=== PATIENT | female | born 1990 | race Two or more races ===

== ENCOUNTER 2018-02-08 12:00 | Inpatient (IN) | payer MEDICAID ==
[~2018-02-08] VITALS: Ht 160 cm; Wt 73.0 kg
[2018-02-08] MEDS ORDERED: PNV1TABL76 PO (13:19)
[2018-02-08] MEDS ORDERED: DEXT 5%/LR + PITOCIN 20UNITS/L 1,000 ML IV SCH (13:21)
[2018-02-08] MEDS ORDERED: BUTORPHANOL TARTRATE 2 MG/ML VIAL IV PRN (13:30)
[2018-02-08] MEDS ORDERED: CARBOPROST TROMETHAMINE 250 MCG/ML AMPUL IM PRN (13:30)
[2018-02-08] MEDS ORDERED: MISOPROSTOL 100MCG TABLET VG PRN (13:30)
[2018-02-08] MEDS ORDERED: LIDOCAINE HCL 1% 20ML VIAL (Pyxis) INJ INFIL PRN (13:30)
[2018-02-08] MEDS ORDERED: NALOXONE HCL 0.4 MG/ML 1ML VIAL IM PRN (13:30)
[2018-02-08] MEDS ORDERED: METHYLERGONOVINE MALEATE 0.2 MG/ML IM PRN (13:30)
[2018-02-08 13:47] LABS: BASOPHILS % 0.2 % (0.0-2.0); EOSINOPHILS % 1.2 % (0.0-5.0); HEMATOCRIT. 34.6 % (36.0-48.0); LYMPHOCYTES % 16.2 % (20.0-50.0); MEAN CORPUSCULAR HEMOGLOBIN 27.8 pg (28.0-32.0); MEAN CORPUSCULAR VOLUME 80.2 fL (81.0-99.0); MEAN PLATELET VOLUME 9.5 fl (7.4-10.4); MONOCYTES % 8.1 % (2.0-8.0); NEUTROPHILS % 74.3 % (40.0-76.0); PLATELET 213 x1000/uL (130-400); RED BLOOD CELL COUNT 4.32 mill/uL (4.2-5.4); RED CELL DISTRIBUTION WIDTH 16.5 % (11.6-14.6)
[2018-02-08] MEDS: LACTATED RINGERS 1,000 ML IV SCH ×2 (13:54→21:45)
[2018-02-08 13:56] LABS: PARTIAL THROMBOPLASTIN TIME 26.4 sec (23.4-31.0)
[2018-02-08] MEDS ORDERED: LEVOTHYROXINE SODIUM 50MCG TABLET PO SCH (14:00)
[2018-02-08 14:34] LABS: HEPATITIS B SURFACE ANTIGEN NEGATIVE; RUBELLA IGG 217.2 IU/mL (4.99-10)
[2018-02-08 14:54] LABS: CLARITY URINE CLEAR (CLEAR); COLOR URINE YELLOW (YELLOW); KETONES URINE NEGATIVE (NEGATIVE); LEUKOCYTE ESTERASE URINE TRACE (NEGATIVE); NITRITE URINE NEGATIVE (NEGATIVE); OCCULT BLOOD URINE NEGATIVE (NEGATIVE); PROTEIN URINE NEGATIVE (NEGATIVE); SPECIFIC GRAVITY URINE 1.016 (1.005-1.030)
[2018-02-08 15:11] LABS: *AMPHETAMINES SCREEN URINE NEGATIVE (NEGATIVE)
[2018-02-08 15:12] LABS: *BARBITURATES SCREEN URINE NEGATIVE (NEGATIVE); *BENZODIAZEPINES SCREEN URINE NEGATIVE (NEGATIVE); *COCAINE SCREEN URINE NEGATIVE (NEGATIVE); METHADONE URINE SCREEN NEGATIVE (NEGATIVE); OPIATES URINE SCREEN NEGATIVE (NEGATIVE); PHENCYCLIDINE URINE SCREEN NEGATIVE (NEGATIVE)
[2018-02-08 15:13] LABS: CANNABINOID URINE SCREEN NEGATIVE (NEGATIVE)
[2018-02-08] MEDS ORDERED: FENTANYL CITRATE/PF 50MCG/ML 2ML VIAL IV ONE (23:00)
[2018-02-09] MEDS ORDERED: CITRIC ACID/SODIUM CITRATE SOLN 30ML UDC PO SCH (00:30)
[2018-02-09] MEDS ORDERED: DEXT 5%/LR + PITOCIN 20UNITS/L 1,000 ML IV SCH (01:49)
[2018-02-09] MEDS ORDERED: BENZOCAINE/LANOLIN/ALOE VERA SPRAY TOP PRN (02:00)
[2018-02-09] MEDS ORDERED: LANOLIN OINT 0.25 GM TUBE TOP PRN (02:00)
[2018-02-09] MEDS ORDERED: HEMORRHOIDAL SUPP PR PRN (02:00)
[2018-02-09] MEDS ORDERED: ACETAMINOPHEN WITH CODEINE 300/30MG TABLET PO PRN ×2 (02:00)
[2018-02-09] MEDS ORDERED: BISACODYL 10MG SUPP PR PRN (02:00)
[2018-02-09] MEDS ORDERED: GLYCERIN/WITCH HAZEL LEAF MEDICATED PAD TOP PRN (02:00)
[2018-02-09] MEDS ORDERED: DIPHENHYDRAMINE 25MG CAPSULE PO PRN (02:00)
[2018-02-09] MEDS ORDERED: TETANUS, DIPHTHERIA, PERTUSSIS VAC/PF 0.5ML (>7YR OLD) IM ONE (03:00)
[2018-02-09 04:30] VITALS: BP 107/58
[2018-02-09 05:00] VITALS: BP 109/57
[2018-02-09] MEDS: LEVOTHYROXINE SODIUM 50MCG TABLET PO SCH (07:07)
[2018-02-09 07:28] VITALS: BP 99/50
[2018-02-09] MEDS: SIMETHICONE 80MG TABLET CHEW PO SCH ×4 (09:00→21:05)
[2018-02-09] MEDS: PRENATAL VIT/FE FUMARATE/FA TABLET PO SCH (09:28)
[2018-02-09] MEDS: MAGNESIUM/ALUMINUM HYDROXIDE/SIMETHICONE 30ML UDC PO SCH ×4 (09:29→21:05)
[2018-02-09] MEDS: IBUPROFEN 400MG TABLET PO PRN ×2 (09:29→17:59)
[2018-02-09 13:05] LABS: BASOPHILS % 0.3 % (0.0-2.0); EOSINOPHILS % 0.3 % (0.0-5.0); HEMATOCRIT. 30.5 % (36.0-48.0); HEMOGLOBIN. 10.5 g/dL (12.0-16.0); LYMPHOCYTES % 11.5 % (20.0-50.0); MEAN CORPUSCULAR HEMOGLOBIN 27.6 pg (28.0-32.0); MEAN CORPUSCULAR VOLUME 80.5 fL (81.0-99.0); MEAN PLATELET VOLUME 9.5 fl (7.4-10.4); NEUTROPHILS % 77.9 % (40.0-76.0); PLATELET 192 x1000/uL (130-400); RED CELL DISTRIBUTION WIDTH 16.6 % (11.6-14.6)
[2018-02-09 16:01] VITALS: BP 98/57
[2018-02-09] MEDS ORDERED: DOCUSATE SODIUM 100MG CAPSULE PO SCH (21:00)
[2018-02-09 22:00] VITALS: BP 109/74
[2018-02-10 06:00] VITALS: BP 102/62
[2018-02-10] MEDS: LEVOTHYROXINE SODIUM 50MCG TABLET PO SCH (07:13)
[2018-02-10] MEDS: SIMETHICONE 80MG TABLET CHEW PO SCH (09:10)
[2018-02-10] MEDS: MAGNESIUM/ALUMINUM HYDROXIDE/SIMETHICONE 30ML UDC PO SCH (09:10)
[2018-02-10] MEDS: PRENATAL VIT/FE FUMARATE/FA TABLET PO SCH (09:10)
[2018-02-10] MEDS ORDERED: FERROUS SULFATE 325MG TABLET PO SCH (12:10)
== END 2018-02-10 14:30 | disposition home or self-care (01) | DRG 560 ==
LOC: L&D 12:00 → OBSVTOIN 12:00 → 7EST PP/OB 02-09 03:29
PROVIDERS: ADMIT Specialist; ATTEND Specialist
PROC: 10E0XZZ Delivery of Products of Conception, External Approach (ICD-10-PCS; principal; 2018-02-09 04:00)
DX: O48.0 Post-term pregnancy (principal); E03.9 Hypothyroidism, unspecified; O99.284 Endocrine, nutritional and metabolic diseases complicating childbirth; O77.0 Labor and delivery complicated by meconium in amniotic fluid; O99.03 Anemia complicating the puerperium; D64.9 Anemia, unspecified; Z37.0 Single live birth; Z3A.42 42 weeks gestation of pregnancy
CPT/HCPCS: 36415; 80305; 81003; 85025; 85610; 85730; 86592; 86703; 86762; 86850; 86900; 87340; 90715; G0378; J0595; J2590; J3010; J7120